=== PATIENT | female | born 1985 | race Caucasian/White ===

== ENCOUNTER 2016-08-25 21:45 | Emergency (ER) | payer OTHER ==
[~2016-08-25] VITALS: Ht 167.6 cm; Wt 95.3 kg
[2016-08-25 21:51] VITALS: BP 141/91
--- NOTE | 2016-08-25 22:10 | ED CARDIAC/CP/PALPITATIONS ---
History of Present Illness General Chief Complaint: Upper Respiratory Sx/Fever Stated Complaint: CONGESTION, COUGH Source: patient Exam Limitations: no limitations Vital Signs & Intake/Output Vital Signs & Intake/Output Vital Signs Date Time Temp Pulse Resp B/P B/P Pulse O2 O2 Flow FiO2 Mean Ox Delivery Rate 08/25 2151 97.5 83 20 141/91 99 Room Air ED Intake and Output 08/26 0000 08/25 1200 Intake Total Output Total Balance Patient 210 lb Weight Weight Reported by Patient Measurement Method Allergies Coded Allergies: No Known Allergies (08/25/16) Reconcile Medications Azithromycin (Zithromax) 500 MG TABLET 1 TAB PO DAILY BRONCHITIS Benzonatate (Tessalon Perle) 100 MG CAPSULE 1 CAP PO TID PRN COUGH Codeine Phosphate/Guaifenesi (Cheratussin AC Syrup) 10 MG-100 MG/5 ML LIQUID 10 ML PO QPM PRN COUGH Methylprednisolone. (Medrol) 4 MG TAB.DS.PK 1 DP PO AD INFLAMMATION 6 on day 1 then reduce by one tablet daily until gone Triage Note: TRIAGE: PT TO ER WITH [facility] C/C BILATERAL EAR PAIN AND CHEST HEAVINESS SINCE July. CONSTANT SINCE ONSET. HAS NOT SEEN MD PRIOR TO TODAY. HAS TRIED DAYQUIL, NYQUIL, MUCINEX, TYLENOL AND ALKASELTZER COLD WITH NO REAL RELIEF NOTED. Triage Nurses Notes Reviewed? yes Onset: Gradual Duration: constant Timing: recent history Radiation: no radiation : No Patient currently breastfeeds: No HPI: Patient is a 30-year-old female with an unremarkable past medical history of present emergency room with a two-week history of upper respiratory complaints. Patient states that she began developing a nonproductive cough head congestion nasal congestion ear pain and mild sore throat. Patient states that she was not evaluated oversees however she returned today since symptoms still persist. Patient is a former smoker 2 weeks ago. No similar sick contacts. Patient's tried multiple [id number] medications with no relief of symptoms. Denies any chest pain leg swelling hemoptysis arm pain jaw pain nausea vomiting (ROMIE AGUIRRE,CHE) Past History Travel History Traveled to [place] past 21 day No Medical History Any Pertinent Medical History? 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 No (CHE QUICK) Review of Systems Review of Systems Constitutional: Reports: see HPI. EENTM: Reports: see HPI. Respiratory: Reports: see HPI, cough. Cardiovascular: Reports: no symptoms. GI: Reports: no symptoms. Genitourinary: Reports: no symptoms. Musculoskeletal: Reports: no symptoms. Skin: Reports: no symptoms. Neurological/Psychological: Reports: no symptoms. Hematologic/Endocrine: Reports: no symptoms. Immunologic/Allergic: Reports: no symptoms. All Other Systems: Reviewed and Negative (CHE QUICK) Physical Exam Physical Exam Cardiovascular: regular rate/rhythm Comments: Well-developed well-nourished person in no acute distress HEENT: Normal EENT exam, extraocular motion intact, no nystagmus. Pupils equally round and reactive to light and accommodation. Nose is atraumatic. External auditory canal and left tympanic membrane noted be erythematous Pharynx normal. No swelling or edema. Neck: Supple, no lymphadenopathy, normal range of motion without pain or tenderness Back: Nontender, no CVA tenderness. Cardiovascular: Regular rate and rhythms no murmurs rubs or gallops, normal JVP Respiratory: Chest nontender. No respiratory distress.breath sounds clear to auscultation bilaterally Abdomen: Soft, nontender nondistended, no appreciable organomegaly. Normal bowel sounds. No ascites Extremity: No edema, no calf tenderness to palpation, normal and equal pulses. Neuro: Alert oriented x3, motor sensory normal Skin: No appreciable rash on exposed skin, skin is warm and dry. Psych: Mood and affect is normal, memory and judgment is normal. Core Measures ACS in differential dx? No Severe Sepsis Present: No Septic Shock Present: No (CHE QUICK) Progress Differential Diagnosis: AMI, aortic dissection, atrial fibrillation, cholecystitis, CHF/pulm edema, costochondritis, hyperkalemia, hypovolemia, hyperthyroid, hyperventilation, intracranial hemorrhage, musculoskeletal pain, myocarditis, pancreatitis, pericarditis, pneumonia, pneumothorax, PSVT, pulmonary embolism, PUD/GERD, PVCs/PACs, respiratory failure, rib fracture, sepsis, unstable angina, V-fib/V-Tach, WPW syndrome Plan of Care: Orders Procedure Date/time Status EKG 08/25 2154 Active Patient was afebrile nontoxic appearing clear lungs auscultation, unremarkable EENT exam. Patient will be treated for concerns of bronchitis and left otitis media (CHE QUICK) Initial ED EKG: normal QRS complex, normal sinus rhythm, NSR 79 BPM (CHE QUICK) Departure Departure Disposition: HOME OR SELF CARE Condition: Stable Clinical Impression Primary Impression: Bronchitis Secondary Impressions: Otitis media, left Referrals: UNKNOWN (PCP/Family) Additional Instructions: As discussed begin the prescription of azithromycin, Tessalon Perles Cheratussin and Medrol Dosepak for your symptoms. Per prescription is waiting a [facility] pharmacy. If no better in 3 days follow-up with her primary care doctor. If symptoms worsen return to emergency room. Departure Forms: Customer Survey General Discharge Information Prescriptions: Current Visit Scripts Azithromycin (Zithromax) 1 TAB PO DAILY #5 TAB Methylprednisolone. (Medrol) 1 DP PO AD #1 DP 6 on day 1 then reduce by one tablet daily until gone Benzonatate (Tessalon Perle) 1 CAP PO TID PRN COUGH #21 CAP Codeine Phosphate/Guaifenesi (Cheratussin AC Syrup) 10 ML PO QPM PRN COUGH #100 ML (CHE QUICK) PA/HI RANGER OPERATOR Co-Sign Statement Statement: ED Attending supervision documentation- [] I saw and evaluated the patient. I have also reviewed all the pertinent lab results and diagnostic results. I agree with the findings and the plan of care as documented in the PA's/HI RANGER OPERATOR's documentation. [x] I have reviewed the ED Record and agree with the PA's/HI RANGER OPERATOR's documentation. [] Additions or exceptions (if any) to the PAs/HI RANGER OPERATOR's note and plan are summarized below: [] (CHANDU QUIÑONEZ,LIZZY Cam) Critical Care Note Critical Care Note Critical Care Time: non-applicable (CHE QUICK)
[2016-08-25] MEDS ORDERED: CHERATUSSIN AC118 M1 PO (22:18)
[2016-08-25] MEDS ORDERED: ZITHROMAX500 M2 PO (22:18)
[2016-08-25] MEDS ORDERED: MEDROL4 M2 PO (22:18)
[2016-08-25] MEDS ORDERED: TESSALON PERLE100 M1 PO (22:18)
== END 2016-08-25 22:26 ==
LOC: ERH 21:45
DX: J40 Bronchitis, not specified as acute or chronic (principal); H66.92 Otitis media, unspecified, left ear; F17.210 Nicotine dependence, cigarettes, uncomplicated
CPT/HCPCS: 93005; 93010